=== PATIENT | female | born 1940 | race Caucasian/White ===

== ENCOUNTER → 2019-11-09 | Outpatient (CLI) | payer OTHER, MEDICARE | END | disposition home or self-care (01) | LOC: RAH 08:53 | PROVIDERS: ATTEND Internal Medicine Cardiovascular Disease | DX: I08.2 Rheumatic disorders of both aortic and tricuspid valves (principal) | CPT/HCPCS: 93306; 93356 ==

== ENCOUNTER 2019-11-12 09:55 | Emergency (ER) | payer OTHER, MEDICARE ==
[2019-11-12 10:45] LABS: BASOPHILS % (AUTO) 0.4 % (0.0-5.0); EOSINOPHILS % (AUTO) 1.2 % (0.0-8.0); HEMATOCRIT 38.9 % (36-48); LYMPHOCYTES % (AUTO) 6.2 % (21.0-51.0); MEAN CORPUSCULAR HEMOGLOBIN 28.6 pg (27.0-33.0); MEAN CORPUSCULAR HGB CONC 31.9 g/dL (32.0-36.0); MEAN CORPUSCULAR VOLUME 89.6 fL (79-99); MONOCYTES % (AUTO) 4.8 % (3.0-13.0); NEUTROPHILS % (AUTO) 86.7 % (40.0-77.0); PLATELET COUNT (AUTO) 418 K/uL (130-400); RED BLOOD CELL COUNT(AUTO) 4.34 MIL/uL (4.00-5.50); RED CELL DISTRIBUTION WIDTH 13.1 % (11.0-15.5); WHITE BLOOD COUNT (AUTO) 13.2 K/uL (4.8-10.8)
[2019-11-12 10:56] LABS: CREATININE 1.2 mg/dL (0.5-1.5)
[2019-11-12 11:00] LABS: ALBUMIN 2.6 g/dL (3.5-5.0); BILIRUBIN,TOTAL 0.6 mg/dL (0.2-1.0); TOTAL PROTEIN, SERUM 8.3 g/dL (6.0-8.3)
[2019-11-12 11:01] LABS: INR 0.97 (0.85-1.15); PARTIAL THROMBOPLASTIN TIME 29.7 SEC (26.3-35.5); PROTHROMBIN TIME 10.2 SEC (9.6-11.6)
[2019-11-12] MEDS ORDERED: IPRATROPIUM/ALBUTEROL SULFATE 3 ML SOLUTION IH ONE (13:58)
== END 2019-11-12 14:20 | disposition home or self-care (01) ==
LOC: EDH 09:55
DX: J18.9 Pneumonia, unspecified organism (principal); R05 Cough
CPT/HCPCS: 36415; 71046; 80053; 82550; 84484; 85025; 85610; 85730; 87804; 93005; 94640

== ENCOUNTER 2021-05-20 10:46 | Inpatient (IN) | payer MEDICARE ==
[~2021-05-20] VITALS: Ht 170.2 cm; Wt 95.1 kg
[2021-05-20 11:22] LABS: BASOPHILS % (AUTO) 0.4 % (0.0-5.0); EOSINOPHILS % (AUTO) 2.6 % (0.0-8.0); HEMATOCRIT 26.8 % (36-48); LYMPHOCYTES % (AUTO) 11.8 % (21.0-51.0); MEAN CORPUSCULAR HEMOGLOBIN 28.9 pg (27.0-33.0); MEAN CORPUSCULAR HGB CONC 31.3 g/dL (32.0-36.0); MEAN CORPUSCULAR VOLUME 92.1 fL (79-99); NEUTROPHILS % (AUTO) 79.9 % (40.0-77.0); PLATELET COUNT (AUTO) 225 K/uL (130-400); RED BLOOD CELL COUNT(AUTO) 2.91 MIL/uL (4.00-5.50); RED CELL DISTRIBUTION WIDTH 16.2 % (11.0-15.5); WHITE BLOOD COUNT (AUTO) 6.9 K/uL (4.8-10.8)
[2021-05-20 11:56] LABS: ALBUMIN 3.2 g/dL (3.5-5.0); POTASSIUM 4.7 mmol/L (3.5-5.1)
[2021-05-20 12:01] LABS: BILIRUBIN,TOTAL 0.4 mg/dL (0.2-1.0); TOTAL PROTEIN, SERUM 7.5 g/dL (6.0-8.3)
[2021-05-20 12:09] LABS: CREATININE 11.3 mg/dL (0.5-1.5)
[2021-05-20 12:20] LABS: APPEARANCE,URINE Turbid (CLEAR); BILIRUBIN,URINE Negative (NEGATIVE); COLOR,URINE Yellow (YELLOW); GLUCOSE, URINE (UA) TRACE mg/dL (NEGATIVE); KETONES,URINE Negative (NEGATIVE); LEUKOCYTE ESTERASE ,URINE Moderate (NEGATIVE); NITRATE,URINE Negative (NEGATIVE); OCCULT BLOOD,URINE Large (NEGATIVE); PROTEIN,URINE 300 mg/dL (NEGATIVE)
[2021-05-20] MEDS: PANTOPRAZOLE 40 MG TAB DR PO SCH (12:52)
[2021-05-20 12:54] LABS: BACTERIA,URINE Moderate /HPF (None Seen)
[2021-05-20 15:51] VITALS: BP_SYST 164; BP_SYST 189; BP_DIAS 78
[2021-05-20] MEDS: HYDRALAZINE 20MG/ML VIAL IV PRN ×2 (16:02→23:54)
[2021-05-20 17:44] VITALS: BP 169/87
[2021-05-20 19:21] VITALS: BP 165/89
[2021-05-20] MEDS: CEFTRIAXONE 1G VIAL IVP SCH (21:40)
[2021-05-20 23:17] VITALS: BP 151/85
[2021-05-20 23:51] VITALS: BP 181/91
[2021-05-21] VITALS (7 sets, daily range): BP systolic 127–173; BP diastolic 53–116
[2021-05-21 08:02] LABS: BASOPHILS % (AUTO) 0.4 % (0.0-5.0); EOSINOPHILS % (AUTO) 1.6 % (0.0-8.0); HEMATOCRIT 27.3 % (36-48); LYMPHOCYTES % (AUTO) 9.5 % (21.0-51.0); MEAN CORPUSCULAR HEMOGLOBIN 28.9 pg (27.0-33.0); MEAN CORPUSCULAR HGB CONC 31.1 g/dL (32.0-36.0); MEAN CORPUSCULAR VOLUME 92.9 fL (79-99); MONOCYTES % (AUTO) 4.7 % (3.0-13.0); NEUTROPHILS % (AUTO) 83.4 % (40.0-77.0); PLATELET COUNT (AUTO) 213 K/uL (130-400); RED BLOOD CELL COUNT(AUTO) 2.94 MIL/uL (4.00-5.50); RED CELL DISTRIBUTION WIDTH 16.5 % (11.0-15.5); WHITE BLOOD COUNT (AUTO) 7.7 K/uL (4.8-10.8)
[2021-05-21 08:29] LABS: ALBUMIN 3.3 g/dL (3.5-5.0); BILIRUBIN,TOTAL 0.4 mg/dL (0.2-1.0); PHOSPHORUS 6.1 mg/dL (2.5-4.9); POTASSIUM 4.7 mmol/L (3.5-5.1); TOTAL PROTEIN, SERUM 7.6 g/dL (6.0-8.3); URIC ACID 6.3 mg/dL (2.6-7.2)
[2021-05-21] MEDS: ACETAMINOPHEN 325 MG TAB PO PRN (08:54)
[2021-05-21] MEDS: PANTOPRAZOLE 40 MG TAB DR PO SCH (10:49)
[2021-05-21] MEDS: Vitamin B Complex/Vit C/Folic Acid PO SCH (10:49)
[2021-05-21 13:13] LABS: ALBUMIN 3.3 g/dL (3.5-5.0); BILIRUBIN,DIRECT 0.1 mg/dL (0.0-0.3); BILIRUBIN,TOTAL 0.4 mg/dL (0.2-1.0); TOTAL PROTEIN, SERUM 7.8 g/dL (6.0-8.3)
[2021-05-21] MEDS: 0.9%NACL 1000ML 1,000 ML IV SCH (16:30)
[2021-05-21] MEDS: HYDRALAZINE 20MG/ML VIAL IV PRN (22:00)
[2021-05-22] MEDS: CEFTRIAXONE 1G VIAL IVP SCH ×2 (00:37→20:34)
[2021-05-22] MEDS ORDERED: OMEP40CA21 PO (02:03)
[2021-05-22] MEDS ORDERED: FLUT15.845 NS (02:03)
[2021-05-22 04:00] VITALS: BP 160/82
[2021-05-22] MEDS: HYDRALAZINE 20MG/ML VIAL IV PRN (04:27)
[2021-05-22 05:05] LABS: BASOPHILS % (AUTO) 0.4 % (0.0-5.0); EOSINOPHILS % (AUTO) 3.6 % (0.0-8.0); HEMATOCRIT 24.3 % (36-48); LYMPHOCYTES % (AUTO) 12.4 % (21.0-51.0); MEAN CORPUSCULAR HEMOGLOBIN 29.2 pg (27.0-33.0); MEAN CORPUSCULAR HGB CONC 31.7 g/dL (32.0-36.0); MONOCYTES % (AUTO) 5.8 % (3.0-13.0); NEUTROPHILS % (AUTO) 77.3 % (40.0-77.0); PLATELET COUNT (AUTO) 191 K/uL (130-400); RED BLOOD CELL COUNT(AUTO) 2.64 MIL/uL (4.00-5.50); RED CELL DISTRIBUTION WIDTH 16.6 % (11.0-15.5); WHITE BLOOD COUNT (AUTO) 8.2 K/uL (4.8-10.8)
[2021-05-22 05:14] LABS: INR 1.02 (0.85-1.15); PROTHROMBIN TIME 11.1 SEC (9.6-11.6)
[2021-05-22 05:15] LABS: PARTIAL THROMBOPLASTIN TIME 25.8 SEC (26.3-35.5)
[2021-05-22 05:19] LABS: HEMOGLOBIN A1C 5.2 % (4.0-6.0)
[2021-05-22] MEDS: 0.9%NACL 1000ML 1,000 ML IV SCH ×2 (05:20→18:40)
[2021-05-22 05:32] LABS: ALBUMIN 2.9 g/dL (3.5-5.0); BILIRUBIN,TOTAL 0.3 mg/dL (0.2-1.0); POTASSIUM 4.4 mmol/L (3.5-5.1); TOTAL PROTEIN, SERUM 7.1 g/dL (6.0-8.3)
[2021-05-22 05:39] LABS: CREATININE 11.1 mg/dL (0.5-1.5)
[2021-05-22 07:17] LABS: HEPATITIS A ANTIBODY IGM Negative (Negative); HEPATITIS Bs ANTIGEN SCREEN P Negative (Negative)
[2021-05-22 08:10] VITALS: BP 124/75
[2021-05-22] MEDS ORDERED: NACL NASAL SPRAY 120 SPRAY/BOTTLE NS PRN (09:00)
[2021-05-22] MEDS: AMLODIPINE 5 MG TAB PO SCH (09:21)
[2021-05-22] MEDS: LORATADINE 10 MG TABLET PO SCH (09:21)
[2021-05-22] MEDS: Vitamin B Complex/Vit C/Folic Acid PO SCH (09:21)
[2021-05-22] MEDS: PANTOPRAZOLE 40 MG TAB DR PO SCH (09:22)
[2021-05-22] MEDS: ACETAMINOPHEN 325 MG TAB PO PRN (09:22)
[2021-05-22 12:00] VITALS: BP 125/73
[2021-05-22 16:00] VITALS: BP 153/64
[2021-05-22 20:00] VITALS: BP 155/75
[2021-05-22] MEDS: SODIUM BICARBONATE 650 MG TAB PO SCH (20:34)
[2021-05-23] VITALS (18 sets, daily range): BP systolic 117–166; BP diastolic 68–84
[2021-05-23] MEDS: 0.9%NACL 1000ML 1,000 ML IV SCH ×2 (00:17→19:53)
[2021-05-23] MEDS: ACETAMINOPHEN 325 MG TAB PO PRN (05:30)
[2021-05-23 06:39] LABS: MEAN CORPUSCULAR HEMOGLOBIN 28.9 pg (27.0-33.0); MEAN CORPUSCULAR HGB CONC 30.9 g/dL (32.0-36.0); MEAN CORPUSCULAR VOLUME 93.5 fL (79-99); PLATELET COUNT (AUTO) 163 K/uL (130-400); RED BLOOD CELL COUNT(AUTO) 2.46 MIL/uL (4.00-5.50); RED CELL DISTRIBUTION WIDTH 16.7 % (11.0-15.5); WHITE BLOOD COUNT (AUTO) 7.5 K/uL (4.8-10.8)
[2021-05-23 07:30] LABS: POTASSIUM 4.6 mmol/L (3.5-5.1)
[2021-05-23 07:34] LABS: % IRON SATURATION 26.6 % (22-44)
[2021-05-23 07:55] LABS: CREATININE 11.1 mg/dL (0.5-1.5)
[2021-05-23] MEDS ORDERED: EPOETIN ALFA-EPBX (ESRD) 10,000 UNIT/ML VIAL SQ SCH (08:00)
[2021-05-23] MEDS: SODIUM BICARBONATE 650 MG TAB PO SCH ×2 (09:00→19:46)
[2021-05-23] MEDS: PANTOPRAZOLE 40 MG TAB DR PO SCH (09:00)
[2021-05-23] MEDS: AMLODIPINE 5 MG TAB PO SCH (09:00)
[2021-05-23] MEDS: Vitamin B Complex/Vit C/Folic Acid PO SCH (09:00)
[2021-05-23] MEDS: LORATADINE 10 MG TABLET PO SCH (09:00)
[2021-05-23] MEDS ORDERED: LIDOCAINE HCL 400MG/20ML VIAL ONE (11:16)
[2021-05-23] MEDS ORDERED: SODIUM BICARB 50MEQ 50ML VIAL 50 ML ONE (11:16)
[2021-05-23] MEDS ORDERED: HEPARIN 1,000 UNIT VIAL ONE (11:16)
[2021-05-23] MEDS: 0.9%NACL 1000ML 1,000 ML IV PRN (14:05)
[2021-05-23 14:20] LABS: HEMATOCRIT 21.9 % (36-48)
[2021-05-23 14:34] LABS: ALBUMIN 2.8 g/dL (3.5-5.0); CREATININE 7.2 mg/dL (0.5-1.5)
[2021-05-23] MEDS: HEPARIN 5,000 UNIT VIAL IRRIG PRN (15:32)
[2021-05-23] MEDS: CEFTRIAXONE 1G VIAL IVP SCH (19:46)
[2021-05-24] VITALS (18 sets, daily range): BP systolic 120–180; BP diastolic 73–90
[2021-05-24 05:15] LABS: MEAN CORPUSCULAR HEMOGLOBIN 29.1 pg (27.0-33.0); MEAN CORPUSCULAR VOLUME 90.7 fL (79-99); RED BLOOD CELL COUNT(AUTO) 2.27 MIL/uL (4.00-5.50); RED CELL DISTRIBUTION WIDTH 16.8 % (11.0-15.5); WHITE BLOOD COUNT (AUTO) 6.3 K/uL (4.8-10.8)
[2021-05-24 05:24] LABS: CREATININE 7.3 mg/dL (0.5-1.5); POTASSIUM 3.9 mmol/L (3.5-5.1)
[2021-05-24 05:29] LABS: HEMATOCRIT 20.6 % (36-48)
[2021-05-24] MEDS ORDERED: 0.9% NACL 250ML 250 ML ONE (05:47)
[2021-05-24] MEDS: SODIUM BICARBONATE 650 MG TAB PO SCH ×2 (10:25→20:05)
[2021-05-24] MEDS: PANTOPRAZOLE 40 MG TAB DR PO SCH (10:25)
[2021-05-24] MEDS: AMLODIPINE 5 MG TAB PO SCH (10:26)
[2021-05-24] MEDS: Vitamin B Complex/Vit C/Folic Acid PO SCH (10:26)
[2021-05-24] MEDS: LORATADINE 10 MG TABLET PO SCH (10:26)
[2021-05-24] MEDS: 0.9%NACL 1000ML 1,000 ML IV SCH ×2 (11:38→13:40)
[2021-05-24 13:02] LABS: HEMATOCRIT 26.6 % (36-48)
[2021-05-24 17:09] LABS: HEPATITIS Bs ANTIGEN SCREEN P Negative (Negative)
[2021-05-24] MEDS: HEPARIN 5,000 UNIT VIAL IRRIG PRN (19:20)
[2021-05-24] MEDS: CEFTRIAXONE 1G VIAL IVP SCH (20:05)
[2021-05-25 04:00] VITALS: BP 154/71
[2021-05-25 04:50] LABS: HEMATOCRIT 25.3 % (36-48); MEAN CORPUSCULAR HEMOGLOBIN 29.8 pg (27.0-33.0); MEAN CORPUSCULAR HGB CONC 32.4 g/dL (32.0-36.0); RED BLOOD CELL COUNT(AUTO) 2.75 MIL/uL (4.00-5.50); RED CELL DISTRIBUTION WIDTH 16.6 % (11.0-15.5)
[2021-05-25 05:31] LABS: CREATININE 5.2 mg/dL (0.5-1.5); POTASSIUM 3.4 mmol/L (3.5-5.1)
[2021-05-25] MEDS ORDERED: SODI650T PO (07:14)
[2021-05-25] MEDS ORDERED: AMLO5TAB4 PO (07:14)
[2021-05-25 07:53] VITALS: BP 155/72
[2021-05-25] MEDS: Vitamin B Complex/Vit C/Folic Acid PO SCH (08:36)
[2021-05-25] MEDS: AMLODIPINE 5 MG TAB PO SCH (08:36)
[2021-05-25] MEDS: PANTOPRAZOLE 40 MG TAB DR PO SCH (08:36)
[2021-05-25] MEDS: LORATADINE 10 MG TABLET PO SCH (08:36)
[2021-05-25] MEDS: SODIUM BICARBONATE 650 MG TAB PO SCH (08:36)
[2021-05-25 11:52] VITALS: BP 165/78
[2021-05-25 15:32] VITALS: BP 158/81
[2021-05-25 20:00] VITALS: BP 158/80
[2021-05-26] VITALS (21 sets, daily range): BP systolic 125–178; BP diastolic 70–91
[2021-05-26 05:25] LABS: BASOPHILS % (AUTO) 0.2 % (0.0-5.0); HEMATOCRIT 25.1 % (36-48); LYMPHOCYTES % (AUTO) 9.4 % (21.0-51.0); MEAN CORPUSCULAR HEMOGLOBIN 29.7 pg (27.0-33.0); MEAN CORPUSCULAR HGB CONC 32.7 g/dL (32.0-36.0); MEAN CORPUSCULAR VOLUME 90.9 fL (79-99); MONOCYTES % (AUTO) 8.1 % (3.0-13.0); NEUTROPHILS % (AUTO) 77.8 % (40.0-77.0); PLATELET COUNT (AUTO) 153 K/uL (130-400); RED BLOOD CELL COUNT(AUTO) 2.76 MIL/uL (4.00-5.50); RED CELL DISTRIBUTION WIDTH 16.1 % (11.0-15.5); WHITE BLOOD COUNT (AUTO) 8.1 K/uL (4.8-10.8)
[2021-05-26 05:37] LABS: CREATININE 6.6 mg/dL (0.5-1.5); PHOSPHORUS 4.6 mg/dL (2.5-4.9); POTASSIUM 3.4 mmol/L (3.5-5.1)
[2021-05-26] MEDS: LORATADINE 10 MG TABLET PO SCH (08:43)
[2021-05-26] MEDS: PANTOPRAZOLE 40 MG TAB DR PO SCH (08:43)
[2021-05-26] MEDS: AMLODIPINE 5 MG TAB PO SCH (08:43)
[2021-05-26] MEDS: Vitamin B Complex/Vit C/Folic Acid PO SCH (08:43)
[2021-05-26] MEDS ORDERED: EPOETIN ALFA-EPBX (ESRD) 10,000 UNIT/ML VIAL SQ SCH (12:30)
[2021-05-27] VITALS: BP 145/70
[2021-05-27 04:00] VITALS: BP 140/72
[2021-05-27 05:59] LABS: HEMATOCRIT 26.7 % (36-48); MEAN CORPUSCULAR HEMOGLOBIN 29.4 pg (27.0-33.0); MEAN CORPUSCULAR HGB CONC 31.1 g/dL (32.0-36.0); MEAN CORPUSCULAR VOLUME 94.7 fL (79-99); PLATELET COUNT (AUTO) 185 K/uL (130-400); RED BLOOD CELL COUNT(AUTO) 2.82 MIL/uL (4.00-5.50); RED CELL DISTRIBUTION WIDTH 16.3 % (11.0-15.5); WHITE BLOOD COUNT (AUTO) 7.9 K/uL (4.8-10.8)
[2021-05-27] MEDS: ACETAMINOPHEN 325 MG TAB PO PRN (05:59)
[2021-05-27 06:16] LABS: INR 1.08 (0.85-1.15); PROTHROMBIN TIME 11.7 SEC (9.6-11.6)
[2021-05-27 06:17] LABS: PARTIAL THROMBOPLASTIN TIME 26.8 SEC (26.3-35.5)
[2021-05-27 06:20] LABS: CREATININE 4.9 mg/dL (0.5-1.5); PHOSPHORUS 3.7 mg/dL (2.5-4.9); POTASSIUM 3.4 mmol/L (3.5-5.1)
[2021-05-27 06:53] LABS: BAND NEUTROPHILS % (MANUAL) 1 % (0-2); EOSINOPHILS % (MANUAL) 2 % (1-6); LYMPHOCYTES % (MANUAL) 10 % (22-44); MAN.DIFF COMMENT-IMPRESSION MANUAL DIFFERENTIAL; MONOCYTES % (MANUAL) 6 % (2-9); SEGMENTED NEUTROPHILS % 81 % (40-70)
[2021-05-27 08:00] VITALS: BP 117/72
[2021-05-27] MEDS: LORATADINE 10 MG TABLET PO SCH (10:20)
[2021-05-27] MEDS: AMLODIPINE 5 MG TAB PO SCH (10:20)
[2021-05-27] MEDS: Vitamin B Complex/Vit C/Folic Acid PO SCH (10:21)
[2021-05-27] MEDS: PANTOPRAZOLE 40 MG TAB DR PO SCH (10:21)
[2021-05-27 12:00] VITALS: BP 128/69
[2021-05-27 16:00] VITALS: BP 141/81
[2021-05-27 19:00] VITALS: BP 153/77
[2021-05-28] VITALS (21 sets, daily range): BP systolic 122–160; BP diastolic 63–83
[2021-05-28 05:32] LABS: MEAN CORPUSCULAR HEMOGLOBIN 28.9 pg (27.0-33.0); MEAN CORPUSCULAR HGB CONC 31.5 g/dL (32.0-36.0); MEAN CORPUSCULAR VOLUME 91.5 fL (79-99); PLATELET COUNT (AUTO) 174 K/uL (130-400); RED BLOOD CELL COUNT(AUTO) 2.84 MIL/uL (4.00-5.50); RED CELL DISTRIBUTION WIDTH 15.5 % (11.0-15.5); WHITE BLOOD COUNT (AUTO) 7.5 K/uL (4.8-10.8)
[2021-05-28 06:07] LABS: CREATININE 6.3 mg/dL (0.5-1.5); MAGNESIUM 1.8 mg/dL (1.80-2.40); PHOSPHORUS 4.4 mg/dL (2.5-4.9); POTASSIUM 3.6 mmol/L (3.5-5.1)
[2021-05-28 06:28] LABS: BASOPHILS % (MANUAL) 1 % (0-2); EOSINOPHILS % (MANUAL) 4 % (1-6); LYMPHOCYTES % (MANUAL) 13 % (22-44); MONOCYTES % (MANUAL) 7 % (2-9); SEGMENTED NEUTROPHILS % 75 % (40-70)
[2021-05-28 06:29] LABS: MAN.DIFF COMMENT-IMPRESSION MANUAL DIFFERENTIAL
[2021-05-28 06:31] LABS: PLATELET MORPHOLOGY COMMENT SLIGHTLY DECREASED
[2021-05-28] MEDS: AMLODIPINE 5 MG TAB PO SCH (09:00)
[2021-05-28] MEDS: PANTOPRAZOLE 40 MG TAB DR PO SCH (09:21)
[2021-05-28] MEDS: LORATADINE 10 MG TABLET PO SCH (09:21)
[2021-05-28] MEDS: Vitamin B Complex/Vit C/Folic Acid PO SCH (09:21)
[2021-05-28] MEDS: HEPARIN 5,000 UNIT VIAL IRRIG PRN (13:19)
[2021-05-28] MEDS: EPOETIN ALFA-EPBX (ESRD) 10,000 UNIT/ML VIAL SQ ONE (19:55)
[2021-05-28] MEDS: PREDNISONE 20 MG TABLET PO SCH (20:01)
[2021-05-29 04:23] VITALS: BP 121/59
[2021-05-29 04:51] LABS: HEMATOCRIT 26.7 % (36-48); MEAN CORPUSCULAR HEMOGLOBIN 29.5 pg (27.0-33.0); MEAN CORPUSCULAR HGB CONC 31.8 g/dL (32.0-36.0); MEAN CORPUSCULAR VOLUME 92.7 fL (79-99); RED BLOOD CELL COUNT(AUTO) 2.88 MIL/uL (4.00-5.50); RED CELL DISTRIBUTION WIDTH 15.4 % (11.0-15.5); WHITE BLOOD COUNT (AUTO) 5.6 K/uL (4.8-10.8)
[2021-05-29 05:13] LABS: INR 1.05 (0.85-1.15); PROTHROMBIN TIME 11.4 SEC (9.6-11.6)
[2021-05-29 05:14] LABS: PARTIAL THROMBOPLASTIN TIME 28.4 SEC (26.3-35.5)
[2021-05-29 05:29] LABS: POTASSIUM 4.1 mmol/L (3.5-5.1)
[2021-05-29] MEDS: ACETAMINOPHEN 325 MG TAB PO PRN (07:25)
[2021-05-29] MEDS: EPOETIN ALFA-EPBX (ESRD) 10,000 UNIT/ML VIAL SQ ONE (07:26)
[2021-05-29 07:30] VITALS: BP 138/76
[2021-05-29] MEDS: PREDNISONE 20 MG TABLET PO SCH ×3 (09:13→21:26)
[2021-05-29] MEDS: LORATADINE 10 MG TABLET PO SCH (09:14)
[2021-05-29] MEDS: PANTOPRAZOLE 40 MG TAB DR PO SCH (09:14)
[2021-05-29] MEDS: Vitamin B Complex/Vit C/Folic Acid PO SCH (09:14)
[2021-05-29] MEDS: AMLODIPINE 5 MG TAB PO SCH (09:14)
[2021-05-29 11:00] VITALS: BP 124/65
[2021-05-29] MEDS ORDERED: MIDAZOLAM HCL 1 MG/ML 2ML VIAL ONE (14:24)
[2021-05-29] MEDS ORDERED: FENTANYL CITRATE PF 50 MCG/1 ML 2ML VIAL ONE (14:24)
[2021-05-29 18:46] LABS: HEMATOCRIT 26.9 % (36-48); MEAN CORPUSCULAR HEMOGLOBIN 29.8 pg (27.0-33.0); MEAN CORPUSCULAR HGB CONC 32.3 g/dL (32.0-36.0); MEAN CORPUSCULAR VOLUME 92.1 fL (79-99); RED BLOOD CELL COUNT(AUTO) 2.92 MIL/uL (4.00-5.50); RED CELL DISTRIBUTION WIDTH 15.4 % (11.0-15.5); WHITE BLOOD COUNT (AUTO) 8.2 K/uL (4.8-10.8)
[2021-05-29 19:50] VITALS: BP 133/68
[2021-05-29 23:55] VITALS: BP 142/67
[2021-05-30] VITALS (19 sets, daily range): BP systolic 112–139; BP diastolic 59–78
[2021-05-30 04:46] LABS: HEMATOCRIT 25.8 % (36-48); MEAN CORPUSCULAR HGB CONC 31.8 g/dL (32.0-36.0); MEAN CORPUSCULAR VOLUME 91.2 fL (79-99); RED BLOOD CELL COUNT(AUTO) 2.83 MIL/uL (4.00-5.50); RED CELL DISTRIBUTION WIDTH 15.3 % (11.0-15.5); WHITE BLOOD COUNT (AUTO) 8.5 K/uL (4.8-10.8)
[2021-05-30 05:02] LABS: CREATININE 6.6 mg/dL (0.5-1.5); PHOSPHORUS 4.1 mg/dL (2.5-4.9); POTASSIUM 4.2 mmol/L (3.5-5.1)
[2021-05-30] MEDS: PREDNISONE 20 MG TABLET PO SCH ×3 (08:40→20:53)
[2021-05-30] MEDS: 0.9%NACL 1000ML 1,000 ML IV PRN (09:35)
[2021-05-30] MEDS: AMLODIPINE 5 MG TAB PO SCH (14:43)
[2021-05-30] MEDS: Vitamin B Complex/Vit C/Folic Acid PO SCH (14:43)
[2021-05-30] MEDS: PANTOPRAZOLE 40 MG TAB DR PO SCH (14:43)
[2021-05-30] MEDS: LORATADINE 10 MG TABLET PO SCH (14:43)
[2021-05-31 01:02] VITALS: BP 123/72
[2021-05-31 04:12] VITALS: BP 132/75
[2021-05-31 06:08] LABS: CREATININE 5.5 mg/dL (0.5-1.5); POTASSIUM 4.1 mmol/L (3.5-5.1)
[2021-05-31] MEDS: PANTOPRAZOLE 40 MG TAB DR PO SCH (09:49)
[2021-05-31] MEDS: LORATADINE 10 MG TABLET PO SCH (09:49)
[2021-05-31] MEDS: Vitamin B Complex/Vit C/Folic Acid PO SCH (09:49)
[2021-05-31] MEDS: AMLODIPINE 5 MG TAB PO SCH (09:49)
[2021-05-31] MEDS: PREDNISONE 20 MG TABLET PO SCH ×3 (09:49→21:18)
[2021-05-31 10:01] VITALS: BP 145/72
[2021-05-31 11:28] VITALS: BP 124/61
[2021-05-31 16:35] VITALS: BP 130/68
[2021-05-31 20:40] VITALS: BP 125/70
[2021-05-31] MEDS: MICONAZOLE NITRATE 45 GM CREAM.APPL VG SCH (21:18)
[2021-06-01 00:03] VITALS: BP 132/74
[2021-06-01 04:08] VITALS: BP 123/68
[2021-06-01 05:41] LABS: CREATININE 6.8 mg/dL (0.5-1.5); POTASSIUM 4.3 mmol/L (3.5-5.1)
[2021-06-01 08:00] VITALS: BP 121/75
[2021-06-01] MEDS: PREDNISONE 20 MG TABLET PO SCH ×3 (09:25→20:39)
[2021-06-01] MEDS: LORATADINE 10 MG TABLET PO SCH (09:26)
[2021-06-01] MEDS: PANTOPRAZOLE 40 MG TAB DR PO SCH (09:26)
[2021-06-01] MEDS: Vitamin B Complex/Vit C/Folic Acid PO SCH (09:26)
[2021-06-01] MEDS: AMLODIPINE 5 MG TAB PO SCH (09:26)
[2021-06-01 12:00] VITALS: BP 140/74
[2021-06-01 16:00] VITALS: BP 130/69
[2021-06-01 19:58] VITALS: BP 128/67
[2021-06-01] MEDS: MICONAZOLE NITRATE 45 GM CREAM.APPL VG SCH (20:40)
[2021-06-02] VITALS (21 sets, daily range): BP systolic 106–146; BP diastolic 49–76
[2021-06-02 04:26] LABS: MEAN CORPUSCULAR HEMOGLOBIN 29.6 pg (27.0-33.0); MEAN CORPUSCULAR HGB CONC 32.3 g/dL (32.0-36.0); MEAN CORPUSCULAR VOLUME 91.5 fL (79-99); RED BLOOD CELL COUNT(AUTO) 2.84 MIL/uL (4.00-5.50); RED CELL DISTRIBUTION WIDTH 15.4 % (11.0-15.5); WHITE BLOOD COUNT (AUTO) 10.6 K/uL (4.8-10.8)
[2021-06-02 04:40] LABS: CREATININE 7.7 mg/dL (0.5-1.5); POTASSIUM 4.8 mmol/L (3.5-5.1)
[2021-06-02] MEDS: Vitamin B Complex/Vit C/Folic Acid PO SCH (08:43)
[2021-06-02] MEDS: PANTOPRAZOLE 40 MG TAB DR PO SCH (08:44)
[2021-06-02] MEDS: PREDNISONE 20 MG TABLET PO SCH (08:44)
[2021-06-02] MEDS: LORATADINE 10 MG TABLET PO SCH (08:44)
[2021-06-02] MEDS: AMLODIPINE 5 MG TAB PO SCH (08:44)
[2021-06-02] MEDS: SOLU-MEDROL 125MG VIAL IVP SCH ×2 (15:13→22:00)
[2021-06-02] MEDS: MICONAZOLE NITRATE 45 GM CREAM.APPL VG SCH (22:00)
[2021-06-03] MEDS: SOLU-MEDROL 125MG VIAL IVP SCH ×4 (02:32→19:59)
[2021-06-03 03:44] VITALS: BP 130/65
[2021-06-03 05:27] LABS: HEMATOCRIT 26.7 % (36-48); MEAN CORPUSCULAR HEMOGLOBIN 29.1 pg (27.0-33.0); MEAN CORPUSCULAR HGB CONC 32.2 g/dL (32.0-36.0); MEAN CORPUSCULAR VOLUME 90.2 fL (79-99); RED BLOOD CELL COUNT(AUTO) 2.96 MIL/uL (4.00-5.50); RED CELL DISTRIBUTION WIDTH 15.8 % (11.0-15.5); WHITE BLOOD COUNT (AUTO) 8.6 K/uL (4.8-10.8)
[2021-06-03 05:55] LABS: CREATININE 5.8 mg/dL (0.5-1.5); POTASSIUM 4.6 mmol/L (3.5-5.1); THYROID STIMULATING HORMONE 0.54 uIU/mL (0.36-3.74); URIC ACID 5.1 mg/dL (2.6-7.2)
[2021-06-03 07:29] VITALS: BP 144/72
[2021-06-03] MEDS: LORATADINE 10 MG TABLET PO SCH (07:49)
[2021-06-03] MEDS: Vitamin B Complex/Vit C/Folic Acid PO SCH (07:49)
[2021-06-03] MEDS: AMLODIPINE 5 MG TAB PO SCH (07:49)
[2021-06-03] MEDS: PANTOPRAZOLE 40 MG TAB DR PO SCH (07:49)
[2021-06-03 12:03] VITALS: BP 130/70
[2021-06-03 15:36] VITALS: BP 150/84
[2021-06-03] MEDS: MICONAZOLE NITRATE 45 GM CREAM.APPL VG SCH (20:00)
== END 2021-06-03 20:30 | disposition short-term general hospital (02) | DRG 673 ==
LOC: EDH 10:46 → EDHIP 12:28 → OBSVTOIN 12:28 → 3CH 05-21 23:17
PROVIDERS: ADMIT Internal Medicine Critical Care Medicine; ATTEND Internal Medicine Critical Care Medicine
PROC: 0JH63XZ Insertion of Tunneled Vascular Access Device into Chest Subcutaneous Tissue and Fascia, Percutaneous Approach (ICD-10-PCS; principal; 2021-05-23)
PROC: 02HV33Z Insertion of Infusion Device into Superior Vena Cava, Percutaneous Approach (ICD-10-PCS; 2021-05-23)
PROC: B5181ZA Fluoroscopy of Superior Vena Cava using Low Osmolar Contrast, Guidance (ICD-10-PCS; 2021-05-23)
PROC: B548ZZA Ultrasonography of Superior Vena Cava, Guidance (ICD-10-PCS; 2021-05-23)
PROC: 5A1D70Z Performance of Urinary Filtration, Intermittent, Less than 6 Hours Per Day (ICD-10-PCS; 2021-05-23)
PROC: 30233N1 Transfusion of Nonautologous Red Blood Cells into Peripheral Vein, Percutaneous Approach (ICD-10-PCS; 2021-05-24)
PROC: 5A1D70Z Performance of Urinary Filtration, Intermittent, Less than 6 Hours Per Day (ICD-10-PCS; 2021-05-24)
PROC: 5A1D70Z Performance of Urinary Filtration, Intermittent, Less than 6 Hours Per Day (ICD-10-PCS; 2021-05-25)
PROC: 5A1D70Z Performance of Urinary Filtration, Intermittent, Less than 6 Hours Per Day (ICD-10-PCS; 2021-05-26)
PROC: 5A1D70Z Performance of Urinary Filtration, Intermittent, Less than 6 Hours Per Day (ICD-10-PCS; 2021-05-28)
PROC: 5A1D70Z Performance of Urinary Filtration, Intermittent, Less than 6 Hours Per Day (ICD-10-PCS; 2021-05-30)
PROC: 5A1D70Z Performance of Urinary Filtration, Intermittent, Less than 6 Hours Per Day (ICD-10-PCS; 2021-06-02)
PROC: 0TB13ZX Excision of Left Kidney, Percutaneous Approach, Diagnostic (ICD-10-PCS; 2021-06-02)
DX: I12.0 Hypertensive chronic kidney disease with stage 5 chronic kidney disease or end stage renal disease (principal); N18.6 End stage renal disease; N17.9 Acute kidney failure, unspecified; N39.0 Urinary tract infection, site not specified; D63.8 Anemia in other chronic diseases classified elsewhere; K21.9 Gastro-esophageal reflux disease without esophagitis; Z20.822 Contact with and (suspected) exposure to COVID-19; Z68.32 Body mass index [BMI] 32.0-32.9, adult; E66.9 Obesity, unspecified; B37.3 Candidiasis of vulva and vagina; I77.6 Arteritis, unspecified; M19.90 Unspecified osteoarthritis, unspecified site; Z96.661 Presence of right artificial ankle joint; Z96.642 Presence of left artificial hip joint; R79.89 Other specified abnormal findings of blood chemistry
CPT/HCPCS: 36415; 36430; 36558; 50200; 71045; 76770; 77001; 77012; 80048; 80053; 80061; 80076; 81001; 82040; 82150; 82550; 82565; 82570; 82728; 83036; 83520; 83540; 83550; 83690; 83735; 83880; 84100; 84156; 84443; 84484; 84520; 84550; 85014; 85018; 85025; 85027; 85610; 85730; 86038; 86160; 86215; 86235; 86255; 86334; 86701; 86704; 86706; 86709; 86850; 86900; 86901; 86923; 87088; 87340; 87390; 87635; 90935; 93005; 97039; C1750; G0378; J0360; J0696; J1644; J2250; J2930; J3010; J3490; J7030; J7050; P9016

== ENCOUNTER 2023-01-19 19:30 | Emergency (ER) | payer MEDICARE ==
[~2023-01-19 19:30] MED LIST: AMLO5TAB4 PO; FLUT15.845 NS; OMEP40CA21 PO
[2023-01-19 20:42] VITALS: BP 152/83
[2023-01-19] MEDS ORDERED: ONDANSETRON ODT 4MG TAB SL ONE (21:00)
[2023-01-19] MEDS ORDERED: MORPHINE 2 MG SYG IM ONE (21:00)
[2023-01-19] MEDS ORDERED: HYDR-4060 PO (21:55)
[2023-01-19] MEDS ORDERED: MORPHINE 4 MG SYG ONE (22:33)
== END 2023-01-19 22:51 | disposition home or self-care (01) ==
LOC: EDH 19:30
DX: M25.551 Pain in right hip (principal); I71.40 Abdominal aortic aneurysm, without rupture, unspecified; I12.0 Hypertensive chronic kidney disease with stage 5 chronic kidney disease or end stage renal disease; N18.6 End stage renal disease; Z99.2 Dependence on renal dialysis; Z79.899 Other long term (current) drug therapy
CPT/HCPCS: 99284; 76775; J2270

== ENCOUNTER 2023-11-22 13:03 | Observation (INO) | payer MEDICARE ==
[~2023-11-22] VITALS: Ht 170.2 cm; Wt 61.0 kg
[2023-11-22] VITALS (13 sets, daily range): BP systolic 161–173; BP diastolic 79–99; PULSE 80–107; RESP 12–20; TEMP 97.9; O2SAT 97
[~2023-11-22 13:03] MED LIST changes: -AMLO5TAB4 PO; +ASPI-1005 PO; +CARV6.25 PO; +CHOL500062 PO; -FLUT15.845 NS; +FOLI0.8T2 PO; +LOSA50TA64 PO; -OMEP40CA21 PO; +PANT40TA54 PO
[2023-11-22 14:19] LABS: BASOPHILS # (AUTO) 0.01 K/uL (0.00-0.20); BASOPHILS % (AUTO) 0.2 % (0.0-5.0); EOSINOPHILS # (AUTO) 0.02 K/uL (0.00-0.70); EOSINOPHILS % (AUTO) 0.3 % (0.0-8.0); HEMATOCRIT 35.9 % (36-48); IMMATURE GRANULOCYTE ABSOLUTE 0.03 K/uL (0-1); LYMPHOCYTES # (AUTO) 0.5 K/uL (1.0-4.8); LYMPHOCYTES % (AUTO) 7.8 % (21.0-51.0); MEAN CORPUSCULAR HEMOGLOBIN 33.2 pg (27.0-33.0); MEAN CORPUSCULAR HGB CONC 31.5 g/dL (32.0-36.0); MEAN CORPUSCULAR VOLUME 105.6 fL (79-99); MONOCYTES # (AUTO) 0.4 K/uL (0.1-1.0); MONOCYTES % (AUTO) 6.2 % (3.0-13.0); NEUTROPHILS # (AUTO) 5.4 K/uL (1.8-7.7); PLATELET COUNT (AUTO) 92 K/uL (130-400); RED CELL DISTRIBUTION WIDTH 15.9 % (11.0-15.5); WHITE BLOOD COUNT (AUTO) 6.3 K/uL (4.8-10.8)
[2023-11-22 14:27] LABS: POTASSIUM 4.5 mmol/L (3.5-5.1)
[2023-11-22 14:32] LABS: ALBUMIN 3.3 g/dL (3.5-5.0); BILIRUBIN,TOTAL 0.9 mg/dL (0.2-1.0); TOTAL PROTEIN, SERUM 6.8 g/dL (6.0-8.3)
[2023-11-22] MEDS ORDERED: ONDANSETRON 4MG INJ IV PRN (16:30)
[2023-11-22] MEDS ORDERED: MAG/ALUM/SIMETH 30 ML UDCUP PO PRN (16:30)
[2023-11-22] MEDS ORDERED: HYDROCODONE/ACETAMINOPHEN 5/325 MG TAB PO PRN (16:30)
[2023-11-22] MEDS ORDERED: ZOLPIDEM TARTRATE 5 MG TAB PO PRN (16:30)
[2023-11-22] MEDS ORDERED: GUAIFENESIN-DM 200/20 MG 10 ML PO PRN (16:30)
[2023-11-22] MEDS ORDERED: HYDRALAZINE 20MG/ML VIAL IV PRN (16:30)
[2023-11-22] MEDS ORDERED: LACTULOSE 20 GM/30 ML UDCUP PO PRN (16:30)
[2023-11-22] MEDS ORDERED: DIPHENHYDRAMINE HCL 25 MG CAPSULE PO PRN (16:30)
[2023-11-22] MEDS ORDERED: FAMOTIDINE 20MG VIAL IV PRN (16:30)
[2023-11-22] MEDS ORDERED: NITROGLYCERIN 0.4 MG SL TAB SL PRN (16:30)
[2023-11-22] MEDS ORDERED: ALBUTEROL 0.083% 2.5 MG/3 ML INH IH PRN (16:30)
[2023-11-22] MEDS ORDERED: ACETAMINOPHEN 325 MG TAB PO PRN ×2 (16:30)
[2023-11-22] MEDS ORDERED: PANT40TA54 PO (20:54)
[2023-11-22] MEDS ORDERED: FOLI0.8T2 PO (20:54)
[2023-11-22] MEDS ORDERED: SACU1TAB7 PO (20:54)
[2023-11-22] MEDS ORDERED: ASPI-1197 PO (20:54)
[2023-11-22] MEDS ORDERED: FAMOTIDINE 20MG VIAL IV SCH (21:00)
[2023-11-23] VITALS (15 sets, daily range): BP systolic 141–161; BP diastolic 55–98; PULSE 83–100; RESP 16–20; TEMP 97.7–97.8; O2SAT 97–98
[2023-11-23] MEDS ORDERED: ENOXAPARIN SODIUM 30 MG/0.3 ML SQ SCH (09:00)
[2023-11-23] MEDS: HEPARIN 5,000 UNIT VIAL SQ SCH (09:18)
[2023-11-23] MEDS ORDERED: HYDRALAZINE 20MG/ML VIAL IV PRN (09:30)
[2023-11-23 09:32] LABS: HEMATOCRIT 36.4 % (36-48); MEAN CORPUSCULAR HEMOGLOBIN 33.2 pg (27.0-33.0); MEAN CORPUSCULAR HGB CONC 31.6 g/dL (32.0-36.0); MEAN CORPUSCULAR VOLUME 105.2 fL (79-99); PLATELET COUNT (AUTO) 80 K/uL (130-400); RED BLOOD CELL COUNT(AUTO) 3.46 MIL/uL (4.00-5.50); RED CELL DISTRIBUTION WIDTH 15.9 % (11.0-15.5); WHITE BLOOD COUNT (AUTO) 6.1 K/uL (4.8-10.8)
[2023-11-23 09:42] LABS: CREATININE 4.8 mg/dL (0.5-1.5); POTASSIUM 3.6 mmol/L (3.5-5.1)
[2023-11-23 09:46] LABS: ALBUMIN 3.3 g/dL (3.5-5.0); BILIRUBIN,TOTAL 0.9 mg/dL (0.2-1.0); TOTAL PROTEIN, SERUM 6.9 g/dL (6.0-8.3)
[2023-11-23 10:02] LABS: ABG HCO3 26.8 mmol/L (21.0-28.0); ABG OXYGEN SATURATION 95.2 % (95.0-99.0); ABG PCO2 47 mmHg (32-45); ABG PH 7.376 (7.35-7.450); PO2, ARTERIAL BG 78.1 mmHg (83.0-108.0); VENT MODE, BG RA (ROOM AIR)
[2023-11-23 10:40] LABS: EOSINOPHILS % (MANUAL) 1 % (1-6); LYMPHOCYTES % (MANUAL) 6 % (22-44); MONOCYTES % (MANUAL) 3 % (2-9); SEGMENTED NEUTROPHILS % 90 % (40-70); TOTAL CELLS COUNTED 100
[2023-11-23 10:41] LABS: MAN.DIFF COMMENT-IMPRESSION MANUAL DIFFERENTIAL; PLATELET MORPHOLOGY COMMENT DECREASED
[2023-11-23 11:02] LABS: SARS-CoV-2, RNA, NAAT NEGATIVE SARS CoV-2 (NEGATIVE)
[2023-11-23 11:08] LABS: INFLUENZA TYPE A Negative For Type A (NEGATIVE); INFLUENZA TYPE B Negative For Type B (NEGATIVE)
[2023-11-23 12:36] LABS: HEPATITIS B CORE AB TOTAL Non-Reactive (Nonreactive); HEPATITIS B SURFACE ANTIBODY Positive (Reactive)
[2023-11-23] MEDS: SACUBITRIL/VALSARTAN 1 EACH TABLET PO SCH (20:47)
[2023-11-24] VITALS (10 sets, daily range): BP systolic 135–164; BP diastolic 68–92; PULSE 80–117; RESP 16–22; O2SAT 95–99
[2023-11-24 05:15] LABS: BASOPHILS # (AUTO) 0.01 K/uL (0.00-0.20); BASOPHILS % (AUTO) 0.2 % (0.0-5.0); EOSINOPHILS # (AUTO) 0.14 K/uL (0.00-0.70); EOSINOPHILS % (AUTO) 2.7 % (0.0-8.0); HEMATOCRIT 31.7 % (36-48); IMMATURE GRANULOCYTE ABSOLUTE 0.02 K/uL (0-1); LYMPHOCYTES # (AUTO) 0.6 K/uL (1.0-4.8); LYMPHOCYTES % (AUTO) 10.7 % (21.0-51.0); MEAN CORPUSCULAR HGB CONC 32.5 g/dL (32.0-36.0); MEAN CORPUSCULAR VOLUME 101.6 fL (79-99); MONOCYTES # (AUTO) 0.3 K/uL (0.1-1.0); MONOCYTES % (AUTO) 6.5 % (3.0-13.0); NEUTROPHILS # (AUTO) 4.1 K/uL (1.8-7.7); NEUTROPHILS % (AUTO) 79.5 % (40.0-77.0); PLATELET COUNT (AUTO) 65 K/uL (130-400); RED BLOOD CELL COUNT(AUTO) 3.12 MIL/uL (4.00-5.50); RED CELL DISTRIBUTION WIDTH 15.2 % (11.0-15.5); WHITE BLOOD COUNT (AUTO) 5.2 K/uL (4.8-10.8)
[2023-11-24 05:21] LABS: ALBUMIN 2.8 g/dL (3.5-5.0); BILIRUBIN,TOTAL 0.8 mg/dL (0.2-1.0); MAGNESIUM 1.8 mg/dL (1.80-2.40); PHOSPHORUS 3.3 mg/dL (2.5-4.9); POTASSIUM 3.3 mmol/L (3.5-5.1)
[2023-11-24] MEDS: Vitamin B Complex/Vit C/Folic Acid PO SCH (08:35)
[2023-11-24] MEDS: ASPIRIN 81MG CHEW TAB PO SCH (08:35)
[2023-11-24] MEDS ORDERED: IOHEXOL-350 75 ML VIAL IV ONE (15:47)
[2023-11-24] MEDS: ATORVASTATIN 20 MG TABLET PO SCH (16:52)
[2023-11-25] VITALS (20 sets, daily range): BP systolic 115–150; BP diastolic 60–82; PULSE 68–100; RESP 16–18; TEMP 97.4–97.5; O2SAT 96–98
[2023-11-25 03:59] LABS: BASOPHILS # (AUTO) 0.02 K/uL (0.00-0.20); BASOPHILS % (AUTO) 0.5 % (0.0-5.0); EOSINOPHILS # (AUTO) 0.15 K/uL (0.00-0.70); EOSINOPHILS % (AUTO) 3.7 % (0.0-8.0); HEMATOCRIT 32.1 % (36-48); IMMATURE GRANULOCYTE ABSOLUTE 0.01 K/uL (0-1); LYMPHOCYTES # (AUTO) 0.6 K/uL (1.0-4.8); LYMPHOCYTES % (AUTO) 13.9 % (21.0-51.0); MEAN CORPUSCULAR HEMOGLOBIN 33.3 pg (27.0-33.0); MEAN CORPUSCULAR HGB CONC 31.2 g/dL (32.0-36.0); MONOCYTES # (AUTO) 0.4 K/uL (0.1-1.0); MONOCYTES % (AUTO) 8.8 % (3.0-13.0); NEUTROPHILS % (AUTO) 72.9 % (40.0-77.0); PLATELET COUNT (AUTO) 73 K/uL (130-400); RED CELL DISTRIBUTION WIDTH 15.5 % (11.0-15.5); WHITE BLOOD COUNT (AUTO) 4.1 K/uL (4.8-10.8)
[2023-11-25 04:14] LABS: ALBUMIN 2.6 g/dL (3.5-5.0); BILIRUBIN,TOTAL 0.7 mg/dL (0.2-1.0); CREATININE 5.3 mg/dL (0.5-1.5); POTASSIUM 3.9 mmol/L (3.5-5.1); TOTAL PROTEIN, SERUM 5.6 g/dL (6.0-8.3)
[2023-11-25] MEDS ORDERED: ATOR20TA65 PO (13:34)
== END 2023-11-25 15:30 | disposition home or self-care (01) ==
LOC: EDH 13:03 → EDHIP 16:15 → 4AH 11-23 20:13
PROVIDERS: ADMIT Internal Medicine Critical Care Medicine; ATTEND Internal Medicine Critical Care Medicine
DX: J96.01 Acute respiratory failure with hypoxia (principal); Z20.822 Contact with and (suspected) exposure to COVID-19; E87.70 Fluid overload, unspecified; I13.2 Hypertensive heart and chronic kidney disease with heart failure and with stage 5 chronic kidney disease, or end stage renal disease; E11.22 Type 2 diabetes mellitus with diabetic chronic kidney disease; N18.6 End stage renal disease; I50.9 Heart failure, unspecified; R79.89 Other specified abnormal findings of blood chemistry; I27.20 Pulmonary hypertension, unspecified; I42.9 Cardiomyopathy, unspecified; I07.1 Rheumatic tricuspid insufficiency; I77.82 Antineutrophilic cytoplasmic antibody [ANCA] vasculitis; J84.10 Pulmonary fibrosis, unspecified; R42 Dizziness and giddiness; K21.9 Gastro-esophageal reflux disease without esophagitis; E78.5 Hyperlipidemia, unspecified; I25.10 Atherosclerotic heart disease of native coronary artery without angina pectoris; Z96.651 Presence of right artificial knee joint; Z87.891 Personal history of nicotine dependence; Z88.5 Allergy status to narcotic agent; Z96.642 Presence of left artificial hip joint; Z99.2 Dependence on renal dialysis
CPT/HCPCS: 99285; 84484 ×3; 80053 ×4; 83880; 85025 ×4; 86706; 87340; 86704; 36415 ×4; 71045; 93005 ×3; 90935 ×3; 96372 ×3; 82803; 87804 ×2; 87635; 36600; 83735 ×2; 84100; 82948 ×6; 71270; 97161; 97116; 97530; 94760 ×2; G0378 ×62; J1644 ×3; Q9967; G0257